=== PATIENT | female | born 1945 | race African-American/Black ===

== ENCOUNTER 2018-01-21 05:14 | Observation (INO) | payer OTHER ==
--- NOTE | 2018-01-18 16:45 | Diagnostic Imaging Report ---
PROCEDURE: Frontal and lateral views of the chest. COMPARISON: None. INDICATIONS: PRE OP LEFT KNEE SURGERY SUNDAY FINDINGS: Lines/tubes: None. Lungs: The lungs are well inflated and clear. There is no evidence of pneumonia or pulmonary edema. Pleura: There is no pleural effusion or pneumothorax. Heart and mediastinum: Normal heart size. Tortuosity of the thoracic aorta. Bones: Multilevel spondylosis of the thoracic spine. Anterior wedge deformity of a lower thoracic vertebral body with at least 75% height loss and focal kyphosis. IMPRESSION: 1. No acute cardiopulmonary disease. 2. Chronic appearing thoracic compression deformity as above. Dictated by: Oscar Webb M.D. on 01/18/2018 at 16:46 Electronically approved by: Oscar Webb M.D. on 01/18/2018 at 16:46
[~2018-01-21] VITALS: Ht 162.6 cm; Wt 88.5 kg
[2018-01-21] VITALS (7 sets, daily range): BP systolic 99–107; BP diastolic 50–57
[~2018-01-21 05:14] MED LIST: ASPIRIN81 MG PO; BENAZEPRIL HCL20 MG PO; CARDIZEM CD240 MG PO; CENTRUM TABLET1 EACH PO; CRESTOR10 MG PO; HYDROCHLOROTHIA25 MG PO; SIMVASTATIN10 MG PO
--- OUTSIDE RECORDS SUMMARY | 2018-01-21 05:15 | XMS REPORT ---
Author Author [facility] Address Unknown Phone Unavailable Care Team Providers Care Manager Leasing Name Role Phone ALEJANDRINA MORRIS Unavailable Unavailable Problems This patient has no known problems. Allergies, Adverse Reactions, Alerts This patient has no known allergies or adverse reactions. Medications This patient has no known medications. Results Test Description Test Time Test Comments Text Results Atomic Results Result Comments CHEST 2 VIEWS [place] [address] Patient Name: EDWARD PARKS MR #: [id number] : 1945 Age/Sex: 72/F Req #: [id number] Adm Physician: Ordered by: MARTIN ERWIN MD Report #: [id number] Location: OR Room/Bed: Procedure: [id number] DX/CHEST 2 VIEWS Exam Date: 01/18/18 Exam Time: 1530 REPORT STATUS: Signed PROCEDURE: Frontal and lateral views of the chest. COMPARISON: None. INDICATIONS: PRE OP LEFT KNEE SURGERY SUNDAY FINDINGS: Lines/tubes: None. Lungs: The lungs are well inflated and clear. There is no evidence of pneumonia or pulmonary edema. Pleura: There is no pleural effusion or pneumothorax. Heart and mediastinum: Normal heart size. Tortuosity of the thoracic aorta. Bones: Multilevel spondylosis of the thoracic spine. Anterior wedge deformity of a lower thoracic vertebral body with at least 75% height loss and focal kyphosis. IMPRESSION: 1. No acute cardiopulmonary disease. 2. Chronic appearing thoracic compression deformity as above. Dictated by: Olga Lidia Webb M.D. on 01/18/2018 at 16 :46 Electronically approved by: Olga Lidia Webb M.D. on 01/18/2018 at 16: 46 Dictated By: OLGA LIDIA WEBB MD [id number] Transcribed By: JEAN PAUL on 01/18/18 1646 COPY TO: MARTIN ERWIN MD
--- OUTSIDE RECORDS SUMMARY | 2018-01-21 05:16 | XMS REPORT ---
Author Organization Unknown Address [address] [place] [address] Phone [phone] Care Team Providers Care Loan Expeditor Name Role Phone SEAN "JORDAN" GISELA PRINCE 3 [phone] EULALIA PHAM MD 240 [phone] Allergies Code Code System Name Reaction Severity Status Onset NKDA Notes: 03/20/2016: wax (Active) Medications Name Status Start Date Stop Date alendronate 70 mg tablet Active Not available amoxicillin 875 mg-potassium clavulanate 125 mg tablet Completed 2017 aspirin 81 mg tablet,delayed release Take 1 tablet every day by oral route. Active Not available benzonatate 100 mg capsule Take 1 capsule 3 times a day by oral route as needed for 5 days. Active Not available Colace 100 mg capsule Take 1 capsule 3 times a day by oral route as needed. Active Not available diltiazem CD 240 mg capsule,extended release 24 hr Active Not available diltiazem ER 240 mg capsule,24 hr,extended release Completed 09/04/2016 Fluzone High-Dose 6819-0109 (PF) 180 mcg/0.5 mL intramuscular syringe Completed 09/04/2016 hydrochlorothiazide 25 mg tablet Active Not available indomethacin 25 mg capsule Completed 03/19/2017 latanoprost 0.005 % eye drops Active Not available meloxicam 15 mg tablet TAKE 1 TABLET BY MOUTH DAILY FOR INFLAMMATION Active Not available multivitamin one tab po qd Completed 07/17/2017 Myrbetriq 50 mg tablet,extended release Take 1 tablet every day by oral route for 90 days. Completed 09/11/2017 naproxen sodium 550 mg tablet Completed 04/30/2017 olopatadine 0.2 % eye drops Active Not available oxybutynin chloride ER 10 mg tablet,extended release 24 hr Active Not available Prevnar 13 (PF) 0.5 mL intramuscular syringe Completed 09/04/2016 rosuvastatin 20 mg tablet Take 1 tablet every day by oral route for 90 days. Active Not available simvastatin 10 mg tablet Completed 12/18/2017 sulfamethoxazole 800 mg-trimethoprim 160 mg tablet Completed 09/11/2017 Tylenol Arthritis Pain 650 mg tablet,extended release Take 2 tablets every 8 hours by oral route as needed for 30 days. Active Not available Zostavax (PF) 19,400 unit/0.65 mL subcutaneous suspension Completed 2016 Notes: Medications reviewed with the patient 11/14/17. M.O/ CCM Problems Name Status Onset Date Source Pure Hypercholesterolemia Active 08/09/2015 History Hypertensive Heart Disease Unknown 08/09/2015 History Diverticular Disease of Colon Active 08/09/2015 History Urge Incontinence of Urine Active 08/09/2015 History Disorder of Bone Active 11/30/2015 History Pain in Right Knee Unknown 11/30/2015 History Chronic Kidney Disease Stage 3 Active 03/21/2016 History Primary Open Angle Glaucoma Active 03/23/2016 History Morbid Obesity Active 09/04/2016 Monoplegia of Upper Limb Active 03/19/2017 Late Effects of Cerebrovascular Disease Active 03/19/2017 Diastolic Heart Failure Active 07/25/2017 Prediabetes Active 07/25/2017 Hypertensive Heart and Chronic Kidney Disease with Congestive Heart Failure Active 07/25/2017 Peripheral Arterial Occlusive Disease Active 12/18/2017 Procedures Date Name Performed by 06/25/2017 MAMMO, Screening, Bilateral [facility] [address] [place] [address] (Work [address]) 06/25/2017 Bone Density [facility] [address] [place] [address] (Work Place) Notes: 03/20/2016: R side Carotid Endarterectomy; Surgery Date: 2004 Lab Results Date Name Specimen Result Interpretation Description Value Range Status Address 09/11/2017 Culture, Urine Culture, Urine, Routine see note Final [facility] Laboratory: [facility] Debbie [address] 09/11/2017 Urinalysis, Dipstick Color Glucose negative [facility]: [address] [facility] [address], [place] Color Bilirubin negative [facility]: [address] [facility] [address], [place] Color Ketones negative [facility]: [address] [facility] [address], [place] Color Specific [place] 1.020 [facility]: [address] [facility] [address], [place] Color Blood small [facility]: [address] [facility] [address], [place] Color PH 5.5 [facility]: [address] [facility] [address], [place] Color Protein negative p-[facility]: [address] [facility] [address], [place] Color Urobilinogen 0.2 p-[facility]: [address] [facility] [address], [place] Color Nitrites negative p-[facility]: [address] [facility] [address], [place] Color Leukocytes trace p-[facility]: [address] [facility] [address], [place] 03/21/2017 Fecal Occult Blood, Stool Fecal Globin by [employer]. ( Medicare) Final [facility] Laboratory: [address] Debbie Kilgore [facility], [place] 03/19/2017 TSH, Serum or Plasma Low Tsh 0.37 mIU/L 0.40-4.50 mIU/ L Final [facility] Laboratory: 9055 Debbie Kilgore [facility], [place] 03/19/2017 CBC W/ Auto Diff High White Blood Cell Count 11.7 thousand/uL 3.8-10.8 thousand/uL Final [facility] Laboratory: [address]055 Debbie Kilgore [address] [place] [address] Normal Red Blood Cell Count 4.65 million/uL 3.80-5.10 million/ uL Final [facility] Laboratory: 9055 Debbie Kilgore [address] [place] [address] Normal Hemoglobin 13.6 g/dL 11.7-15.5 g/dL Final [facility] Laboratory: 9055 Debbie Kilgore [address] [place] [address] Normal Hematocrit 41.8 % 35.0-45.0 % Final [facility] Laboratory: 9055 Debbie Kilgore [address] [place] [address] Normal Mcv 90.0 fL 80.0-100.0 fL Final [facility] Laboratory: [address]055 Debbie Kilgore [address] [place] [address] Normal Mch 29.2 pg 27.0-33.0 pg Final [facility] Laboratory: 9055 [facility] Normal Mchc 32.4 g/dL 32.0-36.0 g/dL Final [facility] Laboratory: [address]055 Debbie Kilgore [address] [place] [address] Normal Rdw 14.2 % 11.0-15.0 % Final [facility] Laboratory: 9055 [facility] Low Platelet Count 136 thousand/uL 140-400 thousand/uL Final [facility] Laboratory: 9055 [facility] Normal Mpv 10.3 fL 7.5-12.5 fL Final [facility] Laboratory: 9055 Debbie Rebolledo [place] High Absolute Neutrophils 8529 cells/uL 7798-1936 cells/uL Final [facility] Laboratory: 9055 Debbie Rebolledo [place] Normal Absolute Lymphocytes 2094 cells/uL 850-3900 cells/uL Final [facility] Laboratory: 9055 Debbie Rebolledo [place] Normal Absolute Monocytes 831 cells/uL 200-950 cells/uL Final [facility] Laboratory: 9055 Debbie Rebolledo [place] Normal Absolute Eosinophils 176 cells/uL 15-500 cells/uL Final [facility] Laboratory: 9055 Debbie Rebolledo [place] Normal Absolute Basophils 70 cells/uL 0-200 cells/uL Final [facility] Laboratory: 9055 Debbie Rebolledo [place] Normal Neutrophils 72.9 % Final [facility] Laboratory: 9055 Debbie Rebolledo [place] Normal Lymphocytes 17.9 % Final [facility] Laboratory: 9055 Debbie Rebolledo [place] Normal Monocytes 7.1 % Final [facility] Laboratory: 9055 Debbie Rebolledo [place] Normal Eosinophils 1.5 % Final [facility] Laboratory: 9055 Debbie Rebolledo [place] Normal Basophils 0.6 % Final [facility] Laboratory: 9055 Debbie Rebolledo [place] 03/19/2017 CMP, Serum or Plasma Normal Glucose 87 mg/dL 65-99 mg/ dL Final [facility] Laboratory: 9055 Debbie Rebolledo [place] Normal Urea Nitrogen (BUN) 22 mg/dL 7-25 mg/dL Final [facility] Laboratory: 9055 [facility] Normal Creatinine 0.78 mg/dL 0.60-0.93 mg/dL Final [facility] Laboratory: 9055 [facility] Normal eGFR Non-afr. [place] 76 mL/min/1.73m2 > or=60 mL/min/ 1.73m2 Final [facility] Laboratory: 9055 Debbie Rebolledo [place] Normal eGFR 88 mL/min/1.73m2 > or=60 mL/min/ 1.73m2 Final [facility] Laboratory: [address] Debbie Mahan [address] BUN/creatinine Ratio not applicable (calc) 6-22 (calc) Final [facility] Laboratory: [address] Debbie Mahan [place] [address], [place] Normal Sodium 138 mmol/L 135-146 mmol/L Final [facility] Laboratory: [address] Debbie kanwal [address] Normal Potassium 4.5 mmol/L 3.5-5.3 mmol/L Final [facility] Laboratory: [address]055 Debbie Mahan [address] Normal Chloride 100 mmol/L 98-110 mmol/L Final [facility] Laboratory: [address] Debbie kanwal [address] Normal Carbon Dioxide 28 mmol/L 20-31 mmol/L Final [facility] Laboratory: [address]055 Debbie kanwal [address] Normal Calcium 9.4 mg/dL 8.6-10.4 mg/dL Final [facility] Laboratory: [address] Debbie kanwal [address] Normal Protein, Total 7.8 g/dL 6.1-8.1 g/dL Final [facility] Laboratory: [address] kanwal [address] Normal Albumin 3.9 g/dL 3.6-5.1 g/dL Final [facility] Laboratory: [address] Debbie kanwal [address] High Globulin 3.9 g/dL (calc) 1.9-3.7 g/dL (calc) Final [facility] Laboratory: [address] Debbie kanwal [address] Normal Albumin/globulin Ratio 1.0 (calc) 1.0-2.5 (calc) Final [facility] Laboratory: [address] Debbie kanwal [address] Normal Bilirubin, Total 0.5 mg/dL 0.2-1.2 mg/dL Final [facility] Laboratory: [address] Debbie kanwal [address] Normal Alkaline Phosphatase 73 U/L 33-130 U/L Final [facility] Laboratory: [address] Debbie kanwal [address] Normal Ast 28 U/L 10-35 U/L Final [facility] Laboratory: [address] Debbie kanwal [address] High Alt 42 U/L 6-29 U/L Final [facility] Laboratory: [address] Debbie kanwal [address] 03/19/2017 T4, Total, Serum Normal T4 (Thyroxine), Total 9.3 mcg/ dL 4.5-12.0 mcg/dL Final [facility] Laboratory: [address] Debbie kanwal [address] 03/19/2017 Lipid Panel, Serum High Cholesterol, Total 206 mg/dL 125-200 mg/dL Final [facility] Laboratory: [address] [place] [address] Normal HDL Cholesterol 61 mg/dL > or=46 mg/dL Final [facility] Laboratory: [address] Normal Triglycerides 109 mg/dL <150 mg/dL Final [facility] Laboratory: [address] [place] [address] Normal LDL-cholesterol 123 mg/dL (calc) <130 mg/dL (calc) Final [facility] Laboratory: [address] [place] [address] Normal Chol/hdlc Ratio 3.4 (calc) < or=5.0 (calc) Final [facility] Laboratory: [address] [place] [address] Normal Non HDL Cholesterol 145 mg/dL (calc) Final [facility] Laboratory: [address] [place] [address] 03/19/2017 Magnesium, Serum or Plasma Normal Magnesium 2.4 mg/dL 1.5-2.5 mg/dL Final [facility] Laboratory: [address] [place] [address] 03/19/2017 HbA1C (Hemoglobin a1C), Blood High Hemoglobin a1C 5.9 % of total HGB <5.7 % of total HGB Final [facility] Laboratory: [address] [place] [address] EAG (mg/dL) 123 (calc) Final [facility] Laboratory: [address] [place] [address] EAG (mmol/L) 6.8 (calc) Final [facility] Laboratory: [address] [place] [address] 03/19/2017 Phosphorus, Serum or Plasma Normal Phosphate (as Phosphorus) 4.3 mg/dL 2.1-4.3 mg/dL Final [facility] Laboratory: [address] [place] [address] 03/19/2017 PTH (Parathyroid Hormone), Intact, Serum or Plasma Normal Parathyroid Hormone, Intact 48 pg/mL 14-64 pg/mL Final [facility] Laboratory: [address] [place] [address] 03/19/2017 Protein:creatinine Ratio, Urine Normal Creatinine, Random Urine 53 mg/dL 20-320 mg/dL Final [facility] Laboratory: [address] [place] [address] Normal Protein/creatinine Ratio 94 mg/g creat 21-161 mg/g creat Final [facility] Laboratory: [address] [place] [address] Normal Protein, Total, Random Ur 5 mg/dL 5-24 mg/dL Final [facility] Laboratory: 9[address] Debbie [facility] [address], [place] 09/04/2016 Lipid Panel, Serum Normal Cholesterol, Total 174 mg/dL 125-200 mg/dL Final [facility] Lab: [address], [place] Normal HDL Cholesterol 50 mg/dL > or=46 mg/dL Final [facility] Lab: [address], [place] Normal Triglycerides 103 mg/dL <150 mg/dL Final [facility] Lab: [address], [place] Normal LDL-cholesterol 103 mg/dL (calc) <130 mg/dL (calc) Final [facility] Lab: [address], [place] Normal Chol/hdlc Ratio 3.5 (calc) < or=5.0 (calc) Final [facility] Lab: [address], [place] Normal Non HDL Cholesterol 124 mg/dL (calc) Final [facility] Lab: 70 [facility], [place] 09/04/2016 CMP, Serum or Plasma Normal Glucose 95 mg/dL 65-99 mg/ dL Final [facility] Lab: [address], [place] Normal Urea Nitrogen (BUN) 22 mg/dL 7-25 mg/dL Final [facility] Lab: [address], [place] Normal Creatinine 0.83 mg/dL 0.60-0.93 mg/dL Final [facility] Lab: [address], [place] Normal eGFR Non-afr. [place] 70 mL/min/1.73m2 > or=60 mL/min/ 1.73m2 Final [facility] Lab: [address], [place] Normal eGFR 82 mL/min/1.73m2 > or=60 mL/min/ 1.73m2 Final [facility] Lab: [address], [place] BUN/creatinine Ratio not applicable (calc) 6-22 (calc) Final [facility] Lab: [address], [place] Normal Sodium 140 mmol/L 135-146 mmol/L Final [facility] Lab: [address], [place] Normal Potassium 4.4 mmol/L 3.5-5.3 mmol/L Final [facility] Lab: [address], [place] Normal Chloride 101 mmol/L 98-110 mmol/L Final [facility] Lab: [facility] [address], [place] High Carbon Dioxide 34 mmol/L 20-31 mmol/L Final [facility] Lab: [address], [place] Normal Calcium 9.1 mg/dL 8.6-10.4 mg/dL Final [facility] Lab: [address] [place], [place] [address]vd, [place] Normal Protein, Total 7.4 g/dL 6.1-8.1 g/dL Final [facility] Lab: [address], [place] Normal Albumin 3.9 g/dL 3.6-5.1 g/dL Final [facility] Lab: [address] [place], [place] [address]vd, [place] Normal Globulin 3.5 g/dL (calc) 1.9-3.7 g/dL (calc) Final [facility] Lab: [address] [place] [address], [place] Normal Albumin/globulin Ratio 1.1 (calc) 1.0-2.5 (calc) Final [facility] Lab: [address] [place], [place] [address]vd, [place] Normal Bilirubin, Total 0.4 mg/dL 0.2-1.2 mg/dL Final [facility] Lab: [address] [place], [place] [address]vd, [place] Normal Alkaline Phosphatase 56 U/L 33-130 U/L Final [facility] Lab: [address] [place], [place] [address]vd, [place] Normal Ast 16 U/L 10-35 U/L Final [facility] Lab: [address] [place] [address], [place] Normal Alt 16 U/L 6-29 U/L [facility] Lab: [address] [place], [place] [address]vd, [place] 09/04/2016 CBC W/ Auto Diff Normal White Blood Cell Count 8.8 thousand/uL 3.8-10.8 thousand/uL Final [facility] Lab: [address] [place] [address], [place] Normal Red Blood Cell Count 4.13 million/uL 3.80-5.10 million/ uL Final [facility]: [address] [facility] [place] Normal Hemoglobin 12.2 g/dL 11.7-15.5 g/dL Final [facility] Lab: [address] [place], [place] [address]vd, [place] Normal Hematocrit 37.0 % 35.0-45.0 % Final [facility] Lab: [address], [place] Normal Mcv 89.7 fL 80.0-100.0 fL Final [facility] Lab: [address], [place] Normal Mch 29.5 pg 27.0-33.0 pg Final [facility] Lab: [address], [place] Normal Mchc 32.8 g/dL 32.0-36.0 g/dL Final [facility] Lab: [address], [place] Normal Rdw 14.0 % 11.0-15.0 % Final [facility] Lab: [address], [place] Normal Platelet Count 275 thousand/uL 140-400 thousand/uL Final [facility] Lab: [address], [place] Normal Mpv 9.2 fL 7.5-11.5 fL Final [facility] Lab: [address], [place] Normal Absolute Neutrophils 5861 cells/uL 6853-1086 cells/uL Final [facility] Lab: [address], [place] Normal Absolute Lymphocytes 1813 cells/uL 850-3900 cells/uL Final [facility] Lab: [address], [place] Normal Absolute Monocytes 739 cells/uL 200-950 cells/uL Final [facility] Lab: [address], [place] Normal Absolute Eosinophils 343 cells/uL 15-500 cells/uL Final [facility] Lab: [address], [place] Normal Absolute Basophils 44 cells/uL 0-200 cells/uL Final [facility] Lab: [address], [place] Normal Neutrophils 66.6 % Final [facility] Lab: [address], [place] Normal Lymphocytes 20.6 % Final [facility] Lab: [address], [place] Normal Monocytes 8.4 % Final [facility] Lab: [address], [place] Normal Eosinophils 3.9 % Final [facility] Lab: [address], [place] Normal Basophils 0.5 % Final [facility] Lab: [address], [place] 09/04/2016 Culture, Urine Culture, Urine, Routine Final [facility] Lab: [address], [place] Pulse Oximetry Pulse Ox 97 [facility]: [address] [facility] [address], [place] Albumin:creatinine Ratio, Urine Type Urine Microlalbumin 10 mg/ L [facility]: [address] [facility] [address], [place] Type Urine Creatinine 50 mg/dL [facility]: [address] [facility] [address], [place] Type A:C Ratio <30 mg/g (Normal) [facility]: [address] [facility] [address], [place] Urinalysis, Dipstick Color Glucose negative [facility]: [address] [facility] [address], [place] Color Bilirubin negative [facility]: [address] [facility] [address], [place] Color Ketones negative [facility]: [address] [facility] [address], [place] Color Specific [place] 1.015 [facility]: [address] [facility] [address], [place] Color Blood trace [facility]: [address] [facility] [address], [place] Color PH 7.5 [facility]: [address] [facility] [address], [place] Color Protein negative [facility]: [address] [place] [address], [place] Color Urobilinogen 0.2 p-[facility]: [address] [place] [address], [place] Color Nitrites negative [facility]: [address] [place] [address], [place] Color Leukocytes small [facility]: [address] [place] [address], [place] Past Encounters 12/18/2017 Hypertensive Heart and Chronic Kidney Disease with Congestive Heart Failure; Diastolic Heart Failure; Prediabetes; Chronic Kidney Disease Stage 3; Monoplegia of Upper Limb; Morbid Obesity; Primary Open Angle Glaucoma; Pure Hypercholesterolemia; Peripheral Arterial Occlusive Disease; Osteoarthritis of Knee Sean Augustine MD: [address] [address], Ph. 12/03/2017 Pure Hypercholesterolemia; Hypertensive Heart Disease; Osteoarthritis of Knee Fina Epps: 9055 [facility], [address] [address], Ph. 11/14/2017 Primary Open Angle Glaucoma; Diastolic Heart Failure [facility]: 9046 [facility], [address] [address], Ph. 09/11/2017 Cough; Increased Frequency of Urination; Urge Incontinence of Urine; Acute Urinary Tract Infection; Pure Hypercholesterolemia; Acute Upper Respiratory Infection Ashley Larkin, [employer]: [address] [facility], [address] [address], Ph. [phone] 08/27/2017 Pure Hypercholesterolemia; Hypertensive Heart Disease; Osteoarthritis of Knee Fina Adamst: [address] [address], Ph. 07/26/2017 Pure Hypercholesterolemia; Hypertensive Heart Disease; Osteoarthritis of Knee Fina Epps: [address] [address], Ph. 07/17/2017 Hypertensive Heart and Renal Disease; Diastolic Dysfunction; Pure Hypercholesterolemia; Influenza Vaccination Sean Augustine MD: [address] [address], Ph. 06/28/2017 Pure Hypercholesterolemia; Hypertensive Heart Disease; Osteoarthritis of Knee Fina Epps: [address] [address], Ph. 05/31/2017 Bibiaine Epps: [address] [address], Ph. 04/30/2017 Pure Hypercholesterolemia; Hypertensive Heart Disease; Osteoarthritis of Knee Fina Adamst: [address] [address], Ph. 04/06/2017 Fina Epps: [address] [address], Ph. 03/19/2017 Adult Health Examination; Body Mass Index 30+ - Obesity; Hypertensive Heart Disease; Pure Hypercholesterolemia; Impaired Glucose Tolerance; Urge Incontinence of Urine; Late Effects of Cerebrovascular Disease; Monoplegia of Upper Limb; Chronic Kidney Disease Stage 3; Morbid Obesity; Diverticular Disease of Colon; Disorder of Bone; Primary Open Angle Glaucoma; Screening for Malignant Neoplasm of Breast; Screening for Osteoporosis; Screening for Malignant Neoplasm of Colon; Advance Directive Discussed with Patient; Immunization Sean Augustine MD: [address] [facility], [address] [address], Ph. 11/30/2016 Hypertensive Heart Disease; Morbid Obesity; Chronic Kidney Disease Stage 3; Impaired Glucose Tolerance; Prepatellar Bursitis; Peripheral Arterial Occlusive Disease Sean Augustine MD: [address] [facility], [address], [place] [address], Ph. 09/04/2016 Hypertensive Heart Disease; Pure Hypercholesterolemia; Pain in Right Knee; Chronic Kidney Disease Stage 3; Urgent Desire to Urinate; Morbid Obesity; Acute Urinary Tract Infection Ashley JED LarkinP: [address] [facility], [address], [place] [address], Ph. Social History Smoking Status Never Smoker Vaccine List Vaccine Type influenza, high dose seasonal 07/17/20170.5 mL influenza, injectable, quadrivalent 06/24/2016 influenza, seasonal, injectable 09/01/2014 pneumococcal conjugate PCV 13 03/19/20170.5 mL Tdap 03/19/20170.5 mL zoster 03/19/20170.65 mL Plan of Care Patient Instructions Problem: The patient has a diagnosis of pure hypercholesterolemia. Goal: The patient will have an improvement of cholesterol lab values. Interventions: 1. Encourage patient to exercise 3 times a week for about 30 minutes 2. Encourage patient to limit fats/sugar in diet, eat unsalted almonds, oatmeal , and fish. 3. Encourage patient to take medication as prescribed. Problem: The patient has a diagnosis of OA Goal: The patients condition will be managed in the outpatient setting to relieve pain, slow down or stop joint damage, and improve the persons sense of well-being and ability to function. Interventions: - Contact healthcare provider sudden, unexplained swelling, warmth, or pain in any joint, join pain with a fever or rash - Keep routine f/u with pcp/specialist - Take all medications as prescribed - Educate pt to use heat to ease pain, take warm showers or baths. Use hot packs or a heating pad set on low. Educate to use an ice or cold pack on area for 10-20 min at a time. Put a thin cloth between the ice and your skin. - CM to assist with PT or other specialist referral if needed - Encourage exercise as tolerated and maintaining healthy weight. Problem:The patient has a diagnosis of Hypertension Goal:The patients condition will be managed in the outpatient setting and blood pressure will be within normal limits. Interventions: -Encourage patient to take medication as prescribed. -Encourage patient to decrease sodium intake and eat ffruits/vegetables. Limit processed foods and caffeinated drinks. -Encourage patient to monitor blood pressure and keep a log with readings. Bring readings to next scheduled appointment. -Encourage pt to exercise regularly 3-5 times a week for 30 min, unless the patients activity is restricted by the provider. Educate to stay at a healthy weight. Losing weight can lower your blood pressure -Educate patient that hypertension usually has no symptoms but some people may experience the following symptoms: blurred vision, fatigue, nose bleeds, chest pain, and swooshing sound in ears. Hypertension Problem: The patient has a diagnosis of Hypertension Goal: The patients condition will be managed in the outpatient setting and blood pressure will be within normal limits goal of <140/80. Interventions: 1. Encourage patient to take medication as prescribed and report if medication is not effective in treating blood pressure as evidenced by continued elevated blood pressure readings of >140/90. 2. Encourage patient to monitor blood pressure and keep a log with readings. Bring readings to next scheduled appointment. 3. Encourage pt to exercise regularly 3-5 times a week for 30 min. Educate to stay at a healthy weight. Losing weight can lower your blood pressure 4. Educate patient that hypertension usually has no symptoms but some people may experience the following symptoms: blurred vision, fatigue, nose bleeds, chest pain, and swooshing sound in ears. Problem: The patient has a diagnosis of pure hypercholesterolemia. Goal: The patient will have an improvement of cholesterol lab values. Interventions: 1. Encourage patient to exercise 3 times a week for about 30 minutes 2. Encourage patient to limit fats/sugar in diet, eat unsalted almonds, oatmeal , and fish. 3. Encourage patient to take medication as prescribed. Problem: The patient has a diagnosis of OA Goal: The patients condition will be managed in the outpatient setting to relieve pain, slow down or stop joint damage, and improve the persons sense of well-being and ability to function. Interventions: - Contact healthcare provider sudden, unexplained swelling, warmth, or pain in any joint, join pain with a fever or rash - Keep routine f/u with pcp/specialist - Take all medications as prescribed - Educate pt to use heat to ease pain, take warm showers or baths. Use hot packs or a heating pad set on low. Educate to use an ice or cold pack on area for 10-20 min at a time. Put a thin cloth between the ice and your skin. - CM to assist with PT or other specialist referral if needed - Encourage exercise as tolerated and maintaining healthy weight. Problem:The patient has a diagnosis of Hypertension Goal:The patients condition will be managed in the outpatient setting and blood pressure will be within normal limits. Interventions: -Encourage patient to take medication as prescribed. -Encourage patient to decrease sodium intake and eat ffruits/vegetables. Limit processed foods and caffeinated drinks. -Encourage patient to monitor blood pressure and keep a log with readings. Bring readings to next scheduled appointment. -Encourage pt to exercise regularly 3-5 times a week for 30 min, unless the patients activity is restricted by the provider. Educate to stay at a healthy weight. Losing weight can lower your blood pressure -Educate patient that hypertension usually has no symptoms but some people may experience the following symptoms: blurred vision, fatigue, nose bleeds, chest pain, and swooshing sound in ears. Problem: The patient has a diagnosis of pure hypercholesterolemia. Goal: The patient will have an improvement of cholesterol lab values. Interventions: 1. Encourage patient to exercise 3 times a week for about 30 minutes 2. Encourage patient to limit fats/sugar in diet, eat unsalted almonds, oatmeal , and fish. 3. Encourage patient to take medication as prescribed. Problem: The patient has a diagnosis of OA Goal: The patients condition will be managed in the outpatient setting to relieve pain, slow down or stop joint damage, and improve the persons sense of well-being and ability to function. Interventions: - Contact healthcare provider sudden, unexplained swelling, warmth, or pain in any joint, join pain with a fever or rash - Keep routine f/u with pcp/specialist - Take all medications as prescribed - Educate pt to use heat to ease pain, take warm showers or baths. Use hot packs or a heating pad set on low. Educate to use an ice or cold pack on area for 10-20 min at a time. Put a thin cloth between the ice and your skin. - CM to assist with PT or other specialist referral if needed - Encourage exercise as tolerated and maintaining healthy weight. Problem: The patient has a diagnosis of pure hypercholesterolemia. Goal: The patient will have an improvement of cholesterol lab values. Interventions: 1. Encourage patient to exercise 3 times a week for about 30 minutes 2. Encourage patient to limit fats/sugar in diet, eat unsalted almonds, oatmeal , and fish. 3. Encourage patient to take medication as prescribed. Problem: The patient has a diagnosis of OA Goal: The patients condition will be managed in the outpatient setting to relieve pain, slow down or stop joint damage, and improve the persons sense of well-being and ability to function. Interventions: - Contact healthcare provider sudden, unexplained swelling, warmth, or pain in any joint, join pain with a fever or rash - Keep routine f/u with pcp/specialist - Take all medications as prescribed - Educate pt to use heat to ease pain, take warm showers or baths. Use hot packs or a heating pad set on low. Educate to use an ice or cold pack on area for 10-20 min at a time. Put a thin cloth between the ice and your skin. - CM to assist with PT or other specialist referral if needed - Encourage exercise as tolerated and maintaining healthy weight. Problem: The patient has a diagnosis of pure hypercholesterolemia. Goal: The patient will have an improvement of cholesterol lab values. Interventions: 1. Encourage patient to exercise 3 times a week for about 30 minutes 2. Encourage patient to limit fats/sugar in diet, eat unsalted almonds, oatmeal , and fish. 3. Encourage patient to take medication as prescribed. Problem: The patient has a diagnosis of OA Goal: The patients condition will be managed in the outpatient setting to relieve pain, slow down or stop joint damage, and improve the persons sense of well-being and ability to function. Interventions: - Contact healthcare provider sudden, unexplained swelling, warmth, or pain in any joint, join pain with a fever or rash - Keep routine f/u with pcp/specialist - Take all medications as prescribed - Educate pt to use heat to ease pain, take warm showers or baths. Use hot packs or a heating pad set on low. Educate to use an ice or cold pack on area for 10-20 min at a time. Put a thin cloth between the ice and your skin. - CM to assist with PT or other specialist referral if needed - Encourage exercise as tolerated and maintaining healthy weight. Reminders Provider Appointments None recorded. Lab None recorded. Referral None recorded. Procedures None recorded. Surgeries None recorded. Imaging None recorded. Vitals 12/18/2017 08:30AM Est Patient Height Weight BMI Blood Pressure 5 ft 2 in 197 lbs 36 kg/m2 114/78 mm[Hg] 09/11/2017 08:15AM Est Patient Height Weight BMI Blood Pressure 5 ft 2 in 198.2 lbs 36.3 kg/m2 121/77 mm[Hg] 07/17/2017 10:30AM Est Patient Height Weight BMI Blood Pressure 5 ft 2 in 197.2 lbs 36.1 kg/m2 127/79 mm[Hg] 03/19/2017 10:15AM Est Patient Height Weight BMI Blood Pressure 5 ft 2 in 198 lbs 36.2 kg/m2 125/80 mm[Hg] 11/30/2016 02:15PM Est Patient Height Weight BMI Blood Pressure 5 ft 2 in 204.6 lbs 37.4 kg/m2 127/68 mm[Hg] 09/04/2016 09:00AM Est Patient Height Weight BMI Blood Pressure 5 ft 2 in 199.8 lbs 36.5 kg/m2 (1) 147/73 mm[Hg] (2) 132/74 mm[Hg] 03/20/2016 Height Weight BMI Blood Pressure 5 ft 2 in 205.6 lbs 37.60 kg/m2 127/82 mm[Hg] 12/13/2015 Height Weight BMI Blood Pressure 5 ft 2 in 202 lbs 36.94 kg/m2 127/74 mm[Hg] 11/30/2015 Height Weight BMI Blood Pressure 5 ft 2 in 202.8 lbs 37.09 kg/m2 122/71 mm[Hg] 08/31/2015 Height Weight BMI Blood Pressure 5 ft 2 in 202.6 lbs 37.05 kg/m2 130/60 mm[Hg] 08/09/2015 Height Weight BMI Blood Pressure 5 ft 2 in 201.6 lbs 36.87 kg/m2 150/70 mm[Hg] 06/01/2015 Height Weight BMI Blood Pressure 5 ft 2 in 196.8 lbs 35.99 kg/m2 126/72 mm[Hg] 03/02/2015 Height Weight BMI Blood Pressure 5 ft 2 in 194.8 lbs 35.63 kg/m2 138/68 mm[Hg] 12/01/2014 Height Weight BMI Blood Pressure 5 ft 2 in 193 lbs 35.30 kg/m2 120/62 mm[Hg] 09/30/2014 Height Weight BMI Blood Pressure 5 ft 2 in 190 lbs 34.75 kg/m2 122/77 mm[Hg] 09/01/2014 Height Weight BMI Blood Pressure 5 ft 2 in 192.6 lbs 35.22 kg/m2 130/80 mm[Hg] 03/19/2014 Height Weight 5 ft 2 in 198.8 lbs 02/25/2014 Height Weight 5 ft 2 in 196.6 lbs 12/17/2013 Height Weight 5 ft 2 in 199.2 lbs 10/22/2013 Height Weight 5 ft 2 in 197.2 lbs 10/21/2013 Height Weight 5 ft 2 in 197.6 lbs 09/09/2013 Height Weight 5 ft 2 in 204 lbs 05/30/2013 Height Weight 5 ft 2 in 198.8 lbs 02/27/2013 Height Weight 5 ft 2 in 196.6 lbs 11/28/2012 Height Weight 5 ft 2 in 202.4 lbs 09/03/2012 Height Weight 5 ft 2 in 202.8 lbs 06/20/2012 Height Weight 5 ft 2 in 204.6 lbs 05/07/2012 Height Weight 5 ft 2 in 205.2 lbs 03/15/2012 Height Weight 5 ft 2 in 205 lbs 03/01/2012 Height Weight 5 ft 4 in 205.4 lbs 02/14/2012 Height Weight 5 ft 4 in 211.4 lbs 01/02/2012 Height Weight 5 ft 4 in 208.8 lbs 12/27/2011 Height Weight 5 ft 4 in 210.6 lbs 12/12/2011 Height Weight 5 ft 4 in 210.6 lbs 09/19/2011 Height Weight 5 ft 4 in 211 lbs 09/12/2011 Height Weight 5 ft 4 in 210 lbs 06/13/2011 Height Weight 5 ft 4 in 212.6 lbs 04/17/2011 Height Weight 5 ft 4 in 211.6 lbs 03/02/2011 Height Weight 5 ft 4 in 210 lbs 11/29/2010 Height Weight 5 ft 4 in 208 lbs 08/26/2010 Height Weight 5 ft 4 in 210.6 lbs 05/27/2010 Height Weight 5 ft 4 in 212.2 lbs 04/08/2010 Height Weight 5 ft 4 in 214.4 lbs 02/24/2010 Weight 217 lbs 09/28/2009 Height Weight 4 ft 6.5 in 215 lbs
[2018-01-21] MEDS ORDERED: GABAPENTIN 300 MG CAP ONE (05:55)
[2018-01-21] MEDS ORDERED: CEFAZOLIN SOD 2 GM/D5W 50ML 50 ML IV ONE (05:55)
[2018-01-21] MEDS ORDERED: CELECOXIB 200 MG CAP ONE (05:55)
[2018-01-21] MEDS ORDERED: DEXAMETHASONE SOD PHOS 10 MG/1 ML VIAL ONE (05:55)
[2018-01-21] MEDS ORDERED: ROPIVACAINE 246.25 MG, EPINEPHRINE HCL 1:1000 0.5 MG, CLONIDINE HCL 0.08 MG, KETOROLAC ... INJ ONE ×5 (06:00)
[2018-01-21] MEDS ORDERED: BACITRACIN 50,000 UNIT VIAL ONE (06:08)
[2018-01-21] MEDS ORDERED: MUPIROCIN 2% OINT 22 GM TUBE ONE (06:08)
[2018-01-21] MEDS ORDERED: TRANEXAMIC ACID 1,000 MG/10 ML ML ONE (06:08)
[2018-01-21] MEDS ORDERED: DIPHENHYDRAMINE HCL INJ 50 MG/ML VIAL IM/IV PRN (08:30)
[2018-01-21] MEDS ORDERED: PROMETHAZINE HCL (IM) 25 MG/ML VIAL IM PRN (08:30)
[2018-01-21] MEDS ORDERED: KETOROLAC TROMETHAMINE 30 MG/ML VIAL IV PRN (08:30)
[2018-01-21] MEDS ORDERED: HYDROCODONE/APAP 5MG-325MG TAB PO PRN (08:30)
[2018-01-21] MEDS ORDERED: DOCUSATE SODIUM 100 MG CAP PO PRN (08:30)
[2018-01-21] MEDS ORDERED: ZOLPIDEM TARTRATE 5 MG TAB PO PRN (08:30)
[2018-01-21] MEDS ORDERED: ONDANSETRON HCL INJ 2 MG/ML VIAL IV PRN (08:30)
[2018-01-21] MEDS ORDERED: ACETAMINOPHEN 650 MG SUPP PR PRN (08:30)
--- NOTE | 2018-01-21 08:43 | Diagnostic Imaging Report ---
PROCEDURE: X-RAY LEFT KNEE, ONE OR TWO VIEWS COMPARISON: None. INDICATIONS:POST LEFT KNEE SURGERY FINDINGS: See conclusion. CONCLUSION: Status post total left knee replacement with surrounding soft tissue swelling, air and felicita consistent with recent surgery. No periprosthetic displaced fractures. Dictated by: Dejan Snow M.D. on 01/21/2018 at 8:44 Electronically approved by: Dejan Snow M.D. on 01/21/2018 at 8:44
[2018-01-21] MEDS: SODIUM CHLORIDE 0.9% 1000ML 1,000 ML IV SCH ×2 (11:49→19:50)
[2018-01-21] MEDS: ACETAMINOPHEN 1000 MG/100 ML IV SCH ×3 (13:15→23:58)
[2018-01-21] MEDS: ASPIRIN 325 MG TAB PO SCH ×2 (13:15→18:21)
[2018-01-21] MEDS: CELECOXIB 200 MG CAP PO SCH ×2 (13:15→18:21)
[2018-01-21] MEDS ORDERED: CEFAZOLIN SOD 1 GM/NS 50ML 50 ML IV SCH (14:00)
--- NOTE | 2018-01-21 14:09 | Operative Report ---
DATE OF PROCEDURE: January 21, 2018 VIDEO CONTROL OPERATOR: Maurice Sahu PA-C The patient was brought to the operating room for induction of anesthesia. Throughout this case, my PA's assistance was necessary for retraction of soft tissue and positioning of the extremity. This allows for efficient and technically successful execution of the operation and is considered medically necessary. PREOPERATIVE DIAGNOSIS: Osteoarthritis, left knee. POSTOPERATIVE DIAGNOSIS: Osteoarthritis, left knee. PROCEDURE: Left total knee arthroplasty. INDICATIONS: The patient is a 72-year-old lady who has clinic signs and symptoms consistent with end-stage arthritis of her left knee. She has failed conservative management and would like to proceed with a left total knee replacement. The risks and benefits of the procedure have been explained. The hospital stay and recovery has been discussed. She states she understands and wishes to proceed. DESCRIPTION OF PROCEDURE: The patient was brought to the operating room and placed under general anesthetic. She received prophylactic antibiotics, a regional block, and tranexamic acid in the holding area. Her left lower extremity was prepped and draped in a sterile manner. A preoperative time out was performed. The extremity was exsanguinated and a proximal tourniquet was inflated to 300 mmHg. An anterior incision with a medial parapatellar arthrotomy was performed. Clear synovial fluid was removed from the joint. Medial soft tissue releases were performed. The knee was brought up into flexion with the patella everted. Meniscal remnants and marginal osteophytes were excised. The cruciate ligaments were sacrificed. A [employer] posterior stabilized knee system was used throughout the case. An extramedullary cutting guide was used to resect the proximal tibia. The cut was referenced off of the least affected lateral compartment. The tibial baseplate was noted to be a size #5 component. The central fin punch was impacted and attention was directed towards the distal femur. An intramedullary cutting guide was used to resect the distal femur in 6 degrees of valgus and rotation referenced off of a combination of landmarks including [place]'s line, the epicondylar axis, and the posterior condyles. The femoral component was a size #6. The anterior and posterior cuts were made. The trial reduction was performed. A 9 mm ultra-congruent tibial insert was felt to provide optimal soft tissue balancing in flexion and extension. The patella was then resurfaced with a 29 mm x 9 mm patellar button. The thickness was checked before and after and was right at 22 mm. Patellar tracking was concentric. The trial implants were then all removed. The knee was injected with a 100 mL premixed pericapsular AIMEE impaction into the surrounding soft tissue. The knee was thoroughly irrigated with a shower-tip pulsatile lavage. The components were cemented into place using a single mix of PALACOS cement preloaded with antibiotics. Care was taken to remove all extravasated cement. The knee was further irrigated while the cement cured. The arthrotomy was then closed with interrupted #1 Ethibond. The knee was put through flexion and extension to ensure a secure closure. The skin was closed with subcuticular Vicryl and felicita. A sterile bandage was applied. in stable condition. Blood loss was minimal and all needle and sponge counts were correct. Job#: [id number]
[2018-01-21] MEDS: CEFAZOLIN SOD 1 GM VIAL IV SCH ×2 (14:44→22:05)
[2018-01-21] MEDS ORDERED: ACETAMINOPHEN 1000 MG/100 ML IV ONE (17:37)
[2018-01-21] MEDS ORDERED: LIDOCAINE HCL 2% LOCAL INJ 5 ML SDV VIAL INJ ONE (17:37)
[2018-01-21] MEDS ORDERED: DESFLURANE 240 ML BTL INH ONE (17:37)
[2018-01-21] MEDS ORDERED: DEXAMETHASONE SOD PHOS INJ 4 MG/ML VIAL ONE (17:37)
[2018-01-21] MEDS ORDERED: PROPOFOL IV EMULSION 10 MG/ML 20 ML VIAL ONE (17:37)
[2018-01-21] MEDS ORDERED: ONDANSETRON HCL INJ 2 MG/ML VIAL ONE (17:37)
[2018-01-21] MEDS ORDERED: ROPIVACAINE 0.5% 5 MG/ML 30 ML SDV ONE (17:43)
[2018-01-21] MEDS ORDERED: LIDOCAINE 2%/ EPINEPHRINE 20ML MDV ONE (17:43)
[2018-01-21] MEDS ORDERED: MIDAZOLAM HCL 2 MG/2 ML VIAL ONE (17:46)
[2018-01-21] MEDS ORDERED: FENTANYL CITRATE/PF 100MCG/2 ML INJ ONE (17:46)
[2018-01-21] MEDS ORDERED: SIMVASTATIN 20 MG TAB PO SCH (21:00)
[2018-01-22] VITALS: BP 114/55
[2018-01-22 04:00] VITALS: BP 133/60
[2018-01-22] MEDS: SODIUM CHLORIDE 0.9% 1000ML 1,000 ML IV SCH (04:21)
[2018-01-22] MEDS: ACETAMINOPHEN 1000 MG/100 ML IV SCH (05:32)
[2018-01-22] MEDS: CEFAZOLIN SOD 1 GM VIAL IV SCH ×2 (05:32→13:51)
[2018-01-22 07:11] LABS: HEMATOCRIT 32.1 % (34.2-44.1); HEMOGLOBIN 10.8 g/dL (12.0-16.0)
[2018-01-22 07:39] VITALS: BP 147/67
[2018-01-22] MEDS: ASPIRIN 325 MG TAB PO SCH ×2 (08:07→16:21)
[2018-01-22] MEDS: CELECOXIB 200 MG CAP PO SCH ×2 (08:08→16:21)
[2018-01-22] MEDS: HYDROCODONE/APAP 7.5MG-325MG 1 EA TAB PO PRN ×2 (08:13→13:26)
[2018-01-22] MEDS ORDERED: ACETAMINOPHEN 1000 MG/100 ML IV PRN (08:30)
[2018-01-22] MEDS ORDERED: HYDROCHLOROTHIAZIDE 25 MG TAB PO SCH (09:00)
[2018-01-22] MEDS ORDERED: DILTIAZEM HCL 120 MG CAP CD PO SCH (09:00)
[2018-01-22] MEDS ORDERED: MULTIVITAMINS/MINERALS TAB PO SCH (09:00)
[2018-01-22] MEDS ORDERED: ASPIRIN325 MG PO (11:33)
[2018-01-22 11:44] VITALS: BP 136/62
[2018-01-22] MEDS ORDERED: TYLENOL WITH C1 EACH PO (12:06)
[2018-01-22] MEDS ORDERED: ZOFRAN ODT4 MG PO (12:06)
[2018-01-22] MEDS ORDERED: SENNA LAX8.6 MG PO (12:07)
[2018-01-22 15:29] VITALS: BP 113/55
== END 2018-01-22 16:52 | disposition home health service (06) ==
LOC: OR 05:14 → MED/SURG 10:02
PROVIDERS: ADMIT Specialist; ATTEND Specialist
PROC: 0SRC0J9 Replacement of Right Knee Joint with Synthetic Substitute, Cemented, Open Approach (ICD-10-PCS; principal; 2018-01-21 07:00)
DX: M17.11 Unilateral primary osteoarthritis, right knee (principal); I10 Essential (primary) hypertension; E78.00 Pure hypercholesterolemia, unspecified; E66.9 Obesity, unspecified; Z68.33 Body mass index [BMI] 33.0-33.9, adult; I69.354 Hemiplegia and hemiparesis following cerebral infarction affecting left non-dominant side
CPT/HCPCS: 27447; 36415; 71046; 73560; 85014; 85018; 86850; 86900; 86920; 97110; 97116; 97161; 97530; C1713; G0378 ×2; G8978; G8979; J0171; J0690 ×2; J1100 ×2; J1885; J2001 ×2; J2250; J2405; J2795